=== PATIENT | male | born 1940 | race Caucasian/White ===

== ENCOUNTER → 2020-10-17 | Outpatient (CLI) | payer MEDICARE, BC | LOC: COL.RAD 13:14 | DX: Z01.812 Encounter for preprocedural laboratory examination (principal); M48.061 Spinal stenosis, lumbar region without neurogenic claudication; M51.16 Intervertebral disc disorders with radiculopathy, lumbar region; Z96.1 Presence of intraocular lens; Z98.890 Other specified postprocedural states | CPT/HCPCS: A9585 ==